=== PATIENT | female | born 1960 | race Caucasian/White ===

== ENCOUNTER 2023-11-03 11:32 | Outpatient (CLI) | payer BC ==
[2023-11-03] MEDS ORDERED: iohexol 300mg/ml 100ml inj. ONE (11:51)
== END 2023-11-03 23:59 | disposition home or self-care (01) ==
LOC: RAD 11:32
PROVIDERS: ATTEND Surgery
DX: K82.8 Other specified diseases of gallbladder (principal); K76.0 Fatty (change of) liver, not elsewhere classified; J90 Pleural effusion, not elsewhere classified; J98.11 Atelectasis; R50.82 Postprocedural fever
CPT/HCPCS: 74177; Q9967